=== PATIENT | male | born 1960 | race Caucasian/White ===

== ENCOUNTER 2016-09-16 21:21 | Emergency (ER) | payer SELFPAY ==
[~2016-09-16] VITALS: Ht 182.9 cm; Wt 81.6 kg
[2016-09-16] MEDS ORDERED: HYDROcodone/APAP 7.5 MG/325 MG (LORTAB, LORCET PLUS) TABLET PO STA (22:08)
--- NOTE | 2016-09-16 22:17 | ED Upper Extremity ---
General Chief Complaint: Upper Extremity Stated Complaint: LT WRIST PAIN Nursing Triage Note: to ER with reports of left wrist pain s/p running into glass door. Denies taking any OTC medications or seeing PCP for this. Mild swelling. Nursing Sepsis Screen: No Definite Risk History of Present Illness Time seen by provider: 22:05 Initial Comments Evaluation for left wrist pain Onset: other (3 days ago) Pain/Injury Location: left wrist Method of Injury: direct blow Modifying Factors: Improves With Rest Allergies and Home Medications Allergies Coded Allergies: No Known Drug Allergies (Unverified , 09/16/16) Home Medications No Active Prescriptions or Reported Meds Constitutional: no symptoms reported, see HPI EENTM: no symptoms reported, see HPI Respiratory: no symptoms reported, see HPI Cardiovascular: no symptoms reported, see HPI Gastrointestinal: no symptoms reported, see HPI Genitourinary: no symptoms reported, see HPI Musculoskeletal: see HPI, joint pain (left wrist), joint swelling, muscle pain Skin: no symptoms reported, see HPI Psychiatric/Neurological: No Symptoms Reported, See HPI All Other Systems Reviewed Negative Unless Noted: Yes Past Sujkqxh-Eaptme-Xulkop Hx Patient Social History Alcohol Use: Denies Use Recreational Drug Use: No Smoking Status: Never a Smoker Type Used: Smokeless Tobacco 2nd Hand Smoke Exposure: No Recent Foreign Travel: No Contact w/Someone Who Travel: No Recent Infectious Disease Expo: No Recent Hopitalizations: No Immunizations Up To Date Tetanus Booster (TDap): Less than 5yrs Seasonal Allergies Seasonal Allergies: No Reviewed Nursing Assessment Reviewed/Agree w Nursing PMH: Yes Physical Exam Vital Signs Vital Sign - Last 12Hours 09/16/16 21:39 Temp 98.2 Pulse 64 Resp 16 B/P (MAP) 170/100 Pulse Ox 98 O2 Delivery Room Air Capillary Refill : Less Than 3 Seconds General Appearance: WD/WN, no apparent distress Cardiovascular: normal peripheral pulses, regular rate, rhythm Respiratory: chest non-tender, lungs clear Wrist: Yes bone tenderness (generalized left wrist), Yes limited ROM, Yes pain , Yes soft tissue tenderness, Yes swelling Hand: normal ROM, Left, stiffness, swelling Neurologic/Psychiatric: no motor/sensory deficits, alert, normal mood/affect, oriented x 3 Progress/Results/Core Measures Results/Orders My Orders Orders - ANDERSON GUTIERREZ Hydrocodone/Apap 7.5/325 Tab (Lortab 7. (09/16/16 22:08) Vital Signs/I&O Vital Sign - Last 12Hours 09/16/16 09/16/16 21:39 22:13 Temp 98.2 98.2 Pulse 64 Resp 16 B/P (MAP) 170/100 Pulse Ox 98 O2 Delivery Room Air Blood Pressure Mean: 123 Progress Note : Time: 22:05 Progress Note Initial evaluation completed, x-rays reviewed which showed no acute fractures or dislocations. Wrist splint applied with Rudolph wrap. Discussed patient's blood pressure and importance of following up with the primary care provider. Diagnostic Imaging Diagonstic Imaging: Xray Plain Films/CT/US/NM/MRI: other (wrist) Comments NAME: APOLLOLEXA MED REC#: [id number] PHYSICIAN: DAY [place]GL[place] MD CC: RAI HUANG MD; [place] Page 1 of 1 RADIOLOGY REPORT VIA [place], [place] CC: RAI HUANG MD; [place] Page 1 of 1 RADIOLOGY REPORT NAME: APOLLOLEAX C MED REC#: [id number] PT STATUS: DEP ER : 1960 PHYSICIAN: DAY EN[place] MD ADMIT DATE: 09/16/16/ER Signed Date of Exam: 09/16/16 WRIST, LEFT, 3 VIEWS OR MORE INDICATION: Left wrist pain status post running into glass door. EXAMINATION: Left wrist dated 09/16/2016 FINDINGS: Diffuse soft tissue swelling about the wrist is noted. Radiocarpal joint space narrowing is noted as well as narrowing at the first carpometacarpal joint. Associated spurring is also seen. No definite radiopaque foreign bodies are appreciated. Irregularity along the osseous structures in the dorsum of the wrist are noted and age indeterminate. IMPRESSION: 1. Mild irregularity along the dorsal osseous structures of the wrist which are age indeterminant likely due to spurring but if there is point tenderness a small fracture perhaps a triquetral fracture not excluded. 2. Soft tissue swelling with no radiopaque foreign bodies appreciated. Dictated by: Dictated on workstation # [id number] Dict: 09/16/162212 Trans: 09/16/162242 Interpreted by: RAI HUANG MD Electronically signed by: RAI HUANG MD 09/16/162242 Departure Impression Impression: Primary Impression: Contusion of left wrist Qualified Codes: S60.212A - Contusion of left wrist, initial encounter Disposition: HOME, SELF-CARE Condition: Stable Departure-Patient Inst. Decision time for Depature: 22:15 Referrals: NO,LOCAL PHYSICIAN (PCP/Family) Primary Care Physician Patient Instructions: Common Wrist Injuries (DC), Contusion (DC) Add. Discharge Instructions: Ice to left wrist 20 minutes every 2 hours. Use Rudolph wrap and splint for 2-3 days. Then you may wean out of it. Ibuprofen 600 mg every 8 hours for pain. If pain not controlled with this may use Tylenol 650 mg every 6 hours. Return to emergency department for increased pain, new injuries, or concerns. Establish care with one of the primary providers at [facility], for follow- up of the wrist and blood pressure. All discharge instructions reviewed with patient and/or family. Voiced understanding. Scripts No Active Prescriptions or Reported Meds ANDERSON GUTIERREZ Sep 16, 2016 22:17
[2016-09-16 22:19] VITALS: BP 161/93
--- NOTE | 2016-09-16 22:21 | Diagnostic Imaging Report ---
INDICATION: Left wrist pain status post running into glass door. EXAMINATION: Left wrist dated 09/16/2016 FINDINGS: Diffuse soft tissue swelling about the wrist is noted. Radiocarpal joint space narrowing is noted as well as narrowing at the first carpometacarpal joint. Associated spurring is also seen. No definite radiopaque foreign bodies are appreciated. Irregularity along the osseous structures in the dorsum of the wrist are noted and age indeterminate. IMPRESSION: 1. Mild irregularity along the dorsal osseous structures of the wrist which are age indeterminant likely due to spurring but if there is point tenderness a small fracture perhaps a triquetral fracture not excluded. 2. Soft tissue swelling with no radiopaque foreign bodies appreciated. Dictated by: Dictated on workstation # [id number]
== END 2016-09-16 22:19 | disposition home or self-care (01) ==
LOC: EDUNIT# 21:21 → ER 21:25
DX: S60.212A Contusion of left wrist, initial encounter (principal); F17.210 Nicotine dependence, cigarettes, uncomplicated; W22.09XA Striking against other stationary object, initial encounter
CPT/HCPCS: 73110; 99283